=== PATIENT | female | born 1950 | race African-American/Black ===

== ENCOUNTER → 2017-08-30 | Outpatient (CLI) | payer OTHER, MEDICAID ==
[~2017-08-30] MED LIST: NS 100 ML IV 100 ML IV ONE
[2017-08-30 14:22] LABS: CREATININE 0.8 mg/dL (0.55-1.02)
== END ==
LOC: RAD 13:30
PROVIDERS: ATTEND Psychiatry & Neurology Neurology
DX: G40.909 Epilepsy, unspecified, not intractable, without status epilepticus (principal); G80.8 Other cerebral palsy
CPT/HCPCS: 36415; 82565; 84520; 95819

== ENCOUNTER → 2017-09-03 | Outpatient (CLI) | payer OTHER, MEDICAID ==
--- NOTE | 2017-09-04 08:39 | CT ---
Examination: CT of the head with and without contrast Clinical History: Seizures follow-up, history of cerebral palsy. Technique: Multiple axial images were obtained from the skull base to the vertex, prior to and follow ing the intravenous administration of 98 ml of Omnipaque 350. Dose reduction techniques including aut omated exposure control (AEC) and adjustment of mA and kV were utilized. Comparison: None available. 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 Nonspecific periventricular white matter changes are noted, likely due to small-vessel ischemic disea se. There is no intra or extra-axial hemorrhage, acute infarct or mass lesion noted. There is prominence of the CSF spaces consistent with age related cerebral atrophy. The ventricles ar e symmetric about the midline, with no midline shift or mass effect noted. The posterior fossa and brainstem are within normal limits. 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 Ophthalmological consult is recommended. No bony or soft tissue abnormality is noted. Impression: 1. No acute infarct or hemorrhage. 2. Age-related cerebral atrophy. 3. Nonspecific periventricular white matter changes are noted, likely due to small vessel ischemic di sease. 4. 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 5. There is a moderate protrusion of the posterior portion of the left globe, suggestive of a staphyl sherlyn. Ophthalmological consult is recommended. Reported By:
== END ==
LOC: RAD 13:10
PROVIDERS: ATTEND Psychiatry & Neurology Neurology
DX: G40.909 Epilepsy, unspecified, not intractable, without status epilepticus (principal)
CPT/HCPCS: 70470; 95819; A4222